=== PATIENT | female | born 1965 | race Caucasian/White ===

== ENCOUNTER 2016-10-12 19:11 | Emergency (ER) | payer BC, OTHER ==
[~2016-10-12] VITALS: Ht 167.6 cm; Wt 73.5 kg
[2016-10-12 20:08] LABS: BASOPHILS % (AUTO) 0.5 % (0.0-2.0); DIFF TOTAL % 100 %; EOSINOPHILS # (AUTO) 0.1 /CMM (0.0-0.7); HEMATOCRIT 39 % (33-45); HEMOGLOBIN 12.8 g/dL (11.5-14.8); LYMPHOCYTES # (AUTO) 1.3 /CMM (0.8-4.8); LYMPHOCYTES % (AUTO) 19.1 % (20.0-44.0); MEAN CORPUSCULAR HEMOGLOBIN 28 PG (26.0-33.0); MEAN CORPUSCULAR HGB CONC 33 g/dl (31.0-36.0); MEAN CORPUSCULAR VOLUME 85 fL (82-100); MONOCYTES # (AUTO) 0.4 /CMM (0.1-1.30); MONOCYTES % (AUTO) 5.4 % (2.0-12.0); PLATELET COUNT (AUTO) 241 /CMM (150-450); RED BLOOD CELL COUNT(AUTO) 4.57 MIL/uL (4.0-5.2); WHITE BLOOD COUNT (AUTO) 6.8 K/uL (4.3-11.0)
[2016-10-12 20:21] LABS: CALCIUM, SERUM 8.7 mg/dL (8.5-10.1); CREATININE 0.7 mg/dL (0.6-1.3); POTASSIUM 3.8 mmol/L (3.5-5.1)
[2016-10-12] MEDS ORDERED: IV NS 0.9% 2,000 ML ONE (20:23)
[2016-10-12] MEDS ORDERED: IV SET PRIMARY 1 EA INFUS.SET MC ONE (20:23)
[2016-10-12 20:24] LABS: INR 0.92 (0.87-1.13); PROTHROMBIN TIME 9.7 SECS (9.5-12.7)
[2016-10-12 20:25] LABS: ADD UA MICROSCOPIC YES; KETONES,URINE Negative (NEGATIVE); LEUKOCYTE ESTERASE ,URINE Negative (NEGATIVE)
[2016-10-12] MEDS ORDERED: IV NS 0.9% 1,000 ML BAG IV ONE (20:30)
[2016-10-12 20:49] LABS: ADD URINE CULTURE NO; WBC,URINE 0-2 /HPF (0-3)
[2016-10-12 22:10] VITALS: BP 170/99
== END 2016-10-12 22:11 | disposition home or self-care (01) ==
LOC: ER 19:13
DX: R55 Syncope and collapse (principal); I10 Essential (primary) hypertension; N93.9 Abnormal uterine and vaginal bleeding, unspecified
CPT/HCPCS: 36415; 76856; 80048; 81001; 84484; 84702; 85025; 85730; 93005 ×2; 96360; 96361; 99285; A4606; J7030; Z7610; 81000-TC